=== PATIENT | female | born 1980 | race Caucasian/White ===

== ENCOUNTER 2020-05-05 15:40 | Emergency (ER) | payer MEDICAID ==
[~2020-05-05] VITALS: Ht 162.6 cm; Wt 117.8 kg
[2020-05-05 16:05] VITALS: BP 126/70
[2020-05-05] MEDS ORDERED: LIDOCAINE WITH 8.4% SOD BICARB 3 ML DISP.SYRIN. INJ ONE (16:30)
[2020-05-05] MEDS ORDERED: TETANUS AND DIPHTHERIA TOX/PF 0.5 ML DISP.SYRIN. VAX IM ONE (16:30)
--- NOTE | 2020-05-05 17:18 | PHYS DOC ---
Past Medical History Past Medical History: Other Additional Past Medical Histor: HEART MURMUR Past Surgical History: Cholecystectomy, Hysterectomy, Other Additional Past Surgical Histo: RIGHT ANKLE PAIN Smoking Status: Current Every Day Smoker Alcohol Use: None General Adult EDM: Chief Complaint: LACERATION/AVULSION HPI: HPI: Patient is a 40 year old female who presents to the ED today with left leg laceration that occurred a couple minutes prior to coming to the ED. Patient reports being cut by the edge of a bed. Review of Systems: Review of Systems: Constitutional: Denies fever or chills. [] Integument: Reports left leg laceration Neurologic: Denies headache, focal weakness or sensory changes. [] Psychiatric: Denies depression or anxiety. [] Heart Score: Risk Factors: Risk Factors: DM, Current or recent (<one month) smoker, HTN, HLP, family history of CAD, obesity. Risk Scores: Score 0 - 3: 2.5% MACE over next 6 weeks - Discharge Home Score 4 - 6: 20.3% MACE over next 6 weeks - Admit for Clinical Observation Score 7 - 10: 72.7% MACE over next 6 weeks - Early Invasive Strategies Current Medications: Current Medications Medications (Trade) Dose Ordered Sig/[facility] Start Time Stop Time Status Last Admin Dose Admin Lidocaine HCl (Buffered Lidocaine 1%) 3 ml 1X ONCE 05/05/20 16:30 05/05/20 16:31 DC 05/05/20 16:30 3 ML Tetanus/ Diphtheria Toxoids (Tenivac Syringe) 0.5 ml ONCE ONCE 05/05/20 16:30 05/05/20 16:31 DC 05/05/20 16:30 0.5 ML Allergies: Allergies: Allergies Coded Allergies Type Severity Reaction Last Updated Verified nitrofurantoin Allergy Intermediate 05/05/20 Yes sulfamethoxazole Allergy Intermediate 05/05/20 Yes trimethoprim Allergy Intermediate 05/05/20 Yes Physical Exam: PE: Constitutional: Well developed, well nourished, no acute distress, non-toxic appearance. [] Skin: Left inner leg just above the ankle with a laceration approximately 3 cm long. There is no tendon involvement. Back: No tenderness, no CVA tenderness. [] Extremities: No tenderness, no cyanosis, no clubbing, ROM intact, no edema. [] Neurologic: Alert and oriented X 3, normal motor function, normal sensory function, no focal deficits noted. [] Psychologic: Affect normal, judgement normal, mood normal. [] Current Patient Data: Vital Signs: Vital Signs Date Time Temp Pulse Resp B/P (MAP) Pulse Ox O2 Delivery O2 Flow Rate FiO2 05/05/20 16:05 98.2 78 12 126/70 (88) 97 Room Air 98.2 EKG: EKG: [] Radiology/Procedures: Radiology/Procedures: [] Course & Med Decision Making: Course & Med Decision Making Pertinent Labs and Imaging studies reviewed. (See chart for details) This is a 40-year-old female patient presenting to the ED today with left leg laceration. Tetanus was given. Patient came from the room stating if we cannot close her laceration right away she will walk out. Informed patient to give us a few minutes to set up the room and we close the laceration. She states she cannot wait any longer she stood up with the boyfriend and left. Soo Disclaimer: Soo Disclaimer: This electronic medical record was generated, in whole or in part, using a voice recognition dictation system. Departure Departure Impression: Primary Impression: Leg laceration Qualified Codes: S81.812A - Laceration without foreign body, left lower leg, initial encounter Disposition: 07 AGAINST MEDICAL ADVICE Condition: STABLE Referrals: NO PCP (PCP) Justicifation of Admission Dx: Justifications for Admission: Justification of Admission Dx: N/A GET PABON APRN May 05, 2020 17:18
== END 2020-05-05 17:25 | disposition left against medical advice (07) ==
LOC: ER 15:40
DX: S81.812A Laceration without foreign body, left lower leg, initial encounter (principal); F17.200 Nicotine dependence, unspecified, uncomplicated; Z88.1 Allergy status to other antibiotic agents; Z88.2 Allergy status to sulfonamides; Z88.8 Allergy status to other drugs, medicaments and biological substances; Y28.8XXA Contact with other sharp object, undetermined intent, initial encounter; Y93.89 Activity, other specified; Y92.89 Other specified places as the place of occurrence of the external cause; Y99.8 Other external cause status
CPT/HCPCS: 90471; 90714; 96372; 99284; J3490